=== PATIENT | female | born 2000 ===

== ENCOUNTER 2021-02-24 08:48 | Emergency (ER) | payer MEDICAID, OTHER ==
[~2021-02-24] VITALS: Ht 157.5 cm; Wt 60.3 kg
[2021-02-24 09:28] VITALS: BP 123/72
[2021-02-24] MEDS ORDERED: diphenhdrAMINE HCL 50 MG/1 ML VL IM ONE (10:00)
== END 2021-02-24 11:23 | disposition home or self-care (01) ==
LOC: ER 08:48
DX: F41.8 Other specified anxiety disorders (principal)
CPT/HCPCS: 96372; 99283; J1200

== ENCOUNTER 2021-08-18 21:00 | Emergency (ER) | payer MEDICAID | END 2021-08-18 23:25 | disposition left against medical advice (07) | LOC: ER 21:00 | DX: R11.2 Nausea with vomiting, unspecified (principal); Z53.21 Procedure and treatment not carried out due to patient leaving prior to being seen by health care provider ==